=== PATIENT | female | born 1970 | race Caucasian/White ===

== ENCOUNTER → 2016-08-18 | Outpatient (CLI) | payer BC | LOC: BRMIMAGING 11:35 | DX: Z12.31 Encounter for screening mammogram for malignant neoplasm of breast (principal); Z80.3 Family history of malignant neoplasm of breast | CPT/HCPCS: G0202 ==

== ENCOUNTER → 2017-09-25 | Outpatient (CLI) | payer BC | LOC: BRMIMAGING 13:35 | PROVIDERS: ATTEND Obstetrics & Gynecology | DX: Z12.31 Encounter for screening mammogram for malignant neoplasm of breast (principal); Z80.3 Family history of malignant neoplasm of breast ==

== ENCOUNTER → 2018-12-03 | Outpatient (CLI) | payer BC | LOC: BRMIMAGING 13:52 ==